=== PATIENT | female | born 1960 | race Caucasian/White ===

== ENCOUNTER 2018-09-16 04:00 | Inpatient (IN) | payer OTHER, MEDICAID, SELFPAY ==
[2018-09-16] VITALS (24 sets, daily range): BP systolic 113–137; BP diastolic 65–104; PULSE 91–121; RESP 16–36; TEMP 36.4–37.3; O2SAT 90–97; BMI 19.4
--- NOTE | 2018-09-16 04:05 | DI.RAD.S_ITS ---
PROCEDURE: XR CHEST 1V INDICATIONS: short of breath TECHNIQUE: One view of the chest was acquired. COMPARISON: [facility], CT, CT ANGIO CHEST PE PROTOCOL, 09/16/2018, 5:22. FINDINGS: Surgical changes and devices: None. Lungs and pleura: No pleural effusions or pneumothorax. Lungs are abnormal with hyperexpansion and interstitial prominence. Mediastinum: Mediastinal contours appear normal. Heart size is normal. Bones and chest wall: No suspicious bony lesions. Overlying soft tissues appear unremarkable. IMPRESSION: Chronic appearing lung disease with hyperexpansion and interstitial prominence. Please also refer to the chest CT report from same day. Dictated by: Lyle Juan M.D. on 09/16/2018 at 8:33 Approved by: Lyle Juan M.D. on 09/16/2018 at 8:34
[2018-09-16] MEDS: SODIUM CHLORIDE 0.9% 1,000 ML 150 ML IV (04:15)
[2018-09-16] MEDS: methylPREDNISolone 125 MG/2 ML VIAL IV (04:15)
[2018-09-16] MEDS: ALBUTEROL 2.5 MG/3 ML NEB (ADULT) INH ×7 (04:16→07:34)
--- NOTE | 2018-09-16 04:31 | ED.SOB ---
HPI - SOB/Dyspnea General Chief Complaint: Shortness of Breath/Dyspnea Stated Complaint: SOB Time Seen by Provider: 09/16/18 04:03 Source: patient and EMS Mode of arrival: EMS Limitations: no limitations History of Present Illness patient is a 58-year-old female presents with increasing shortness of breath. It has been ongoing for the last 3 days. She denies any history of COPD or emphysema but smokes 2 packs a day for a number of years although she is down to half a pack now. She has no fever or chills she has productive cough and feels like she can't get enough air. It is significantly worse with exertion. She was recently on a bus to and from [place] each his way was 5 days. The bus stop frequently she was able to get out and walk around. She returned home about 4 days ago which is when all of this started. he received 2 DuoNeb treatments prior to arrival without much relief. MD Complaint: shortness of breath Consistency/Duration: constant Relieving factors: nothing Exacerbating factors: exertion Known history of: COPD Associated symptoms: cough and sputum production Related Data Allergies Allergy/AdvReac Type Severity Reaction Status Date / Time No Known Drug Allergies Allergy Verified 09/16/18 04:33 Review of Systems Review of Systems ROS Unobtainable: All systems reviewed & are unremarkable except as noted in HPI and below Constitutional Denies chills, Denies fever(s), Denies lethargy and Denies weakness ENT Ears, Nose, Mouth, and Throat: Denies change in voice, Denies neck pain and Denies sore throat Cardiovascular Denies chest pain, Denies irregular heart rhythm, Denies lightheadedness, Denies palpitations, Reports dyspnea, Reports dyspnea on exertion and Denies orthopnea Respiratory Reports as per HPI, Reports change in phlegm color, Reports cough, Reports excessive phlegm production, Reports pain with cough, Reports dyspnea, Reports dyspnea on exertion and Reports wheezing Gastrointestinal Gastrointestinal: Denies abdominal pain, Denies change in bowel habits, Denies diarrhea, Denies nausea and Denies vomiting Musculoskeletal Denies neck pain Integumentary/Breasts Denies pruritus, Denies erythema, Denies rash and Denies wounds Neurologic Denies weakness Endocrine Denies palpitations Allergic/Immunologic Reports wheezing [facility] Social History Smoking Status: Current every day smoker Exam Initial Vital Signs Initial Vital Signs: Vital Signs Pulse Rate 111 H 09/16/18 04:02 Respiratory Rate 30 H 09/16/18 04:02 Blood Pressure 122/68 09/16/18 04:02 Pulse Oximetry 96 09/16/18 04:02 GENERAL: female in moderate respiratory distress HEENT: Head atraumatic,EOMI, pupils reactive, neck is supple no JVD CARDIOVASCULAR: Regular rate and rhythm without murmurs, rubs or gallops. RESPIRATORY: decreased breath sounds with scattered wheezing bilaterally. No rales or rhonchi. Speaking in about 5 word sentences. ABDOMEN: Soft, nontender. Normoactive bowel sounds all 4 quadrants. No guarding or rebound. EXTREMITIES: Normal range of motion, no clubbing or edema. Neurovascularly intact NEUROLOGICAL: Alert and oriented x4.Normal gait and speech SKIN: Warm, dry, no laceration, no petechiae, no rashes or lesions. Course Orders Ordered: ED Orders 09/16/18 04:04 Consult to Respiratory Therapy Evaluate & Treat EKG-12 Lead Stat 09/16/18 04:05 XR chest 1V Stat 09/16/18 04:20 B Type Natriuretic Peptide Stat Blood Culture Stat Complete Blood Count AUTO DIFF Stat Comprehensive Metabolic Panel Stat Lactate (Lactic Acid) Stat Procalcitonin Stat Troponin & CK Cardiac Panel Stat 09/16/18 05:10 Arterial Blood Gas Stat 09/16/18 05:11 Arterial Blood Gas Stat 09/16/18 05:26 CT angio chest PE protocol Stat Sodium Chloride (Normal Saline 0.9%) 1,000 mls @ 150 mls/hr IV CONT KIAH Last Admin: 09/16/18 04:15 Dose: 150 mls/hr Discontinued Medications Albuterol (Ventolin) 2.5 mg INH NOW ONE Stop: 09/16/18 04:04 Last Admin: 09/16/18 04:16 Dose: 2.5 mg Albuterol (Ventolin) 2.5 mg INH NOW ONE Stop: 09/16/18 04:55 Last Admin: 09/16/18 04:56 Dose: 2.5 mg Albuterol (Ventolin) 2.5 mg INH NOW ONE Stop: 09/16/18 04:55 Last Admin: 09/16/18 04:56 Dose: 2.5 mg Albuterol (Ventolin) 2.5 mg INH NOW ONE Stop: 09/16/18 05:25 Last Admin: 09/16/18 05:26 Dose: 2.5 mg Albuterol (Ventolin) 2.5 mg INH NOW ONE Stop: 09/16/18 05:25 Last Admin: 09/16/18 05:26 Dose: 2.5 mg Albuterol (Ventolin) 2.5 mg INH NOW ONE Stop: 09/16/18 05:26 Last Admin: 09/16/18 05:27 Dose: 2.5 mg Albuterol (Ventolin) 2.5 mg INH NOW ONE Stop: 09/16/18 05:27 Ceftriaxone Sodium/Dextrose (Rocephin) 1 gm in 50 mls @ 100 mls/hr IV NOW ONE Stop: 09/16/18 05:32 Last Infusion: 09/16/18 06:09 Dose: 0 mls/hr Admin: 09/16/18 05:10 Dose: 100 mls/hr Azithromycin 500 mg/ Dextrose 250 mls @ 250 mls/hr IV NOW ONE Stop: 09/16/18 05:04 Last Admin: 09/16/18 06:35 Dose: 250 mls/hr Methylprednisolone (Solu-Medrol 125 Mg Vial) 125 mg IV NOW ONE Stop: 09/16/18 04:04 Last Admin: 09/16/18 04:15 Dose: 125 mg Vital Signs - 8 hr 09/16/18 04:02 09/16/18 04:15 09/16/18 04:25 Temperature 99.2 F Pulse Rate 111 H 111 H Respiratory Rate 30 H 30 H Blood Pressure 122/68 Blood Pressure [Left Arm] 122/68 Pulse Oximetry 96 96 96 09/16/18 04:36 09/16/18 05:09 09/16/18 05:30 Temperature Pulse Rate 114 H 115 H 117 H Respiratory Rate 29 H 36 H 31 H Blood Pressure Blood Pressure [Left Arm] 128/67 122/69 133/81 Pulse Oximetry 90 L 92 91 09/16/18 05:58 09/16/18 06:30 Temperature Pulse Rate 121 H 109 H Respiratory Rate 28 H 32 H Blood Pressure Blood Pressure [Left Arm] 137/67 128/69 Pulse Oximetry 93 94 MDM - SOB/Dyspnea Lab Data Attestation: I reviewed the patient's lab results. Result diagrams: 09/16/18 04:20 09/16/18 04:20 Lab Results 0109/16/18 09/16/18 Range/Units 04:20 04:20 04:20 WBC 8.7 (4.5-11.0) X10^3/uL RBC 3.79 L (4.0-5.2) X10^6/uL Hgb 11.7 L (12.0-16.0) g/dL Hct 35.1 L (36-46) % MCV 92.6 (80-100) fL MCH 30.9 (26-34) PG MCHC 33.3 (30-36) % RDW 13.4 (11.6-14.8) % Plt Count 212 (150-400) X10^3/uL Neut % (Auto) 73.8 (50-75) % Lymph % (Auto) 8.4 L (25-40) % [place] % (Auto) 17.2 H (3-14) % Eos % (Auto) 0.2 L (2-4) % Baso % (Auto) 0.4 (0-2) % Neut # (Auto) 6400 (4849-3951) /uL Lymph # (Auto) 700 L (0217-1203) /uL [place] # (Auto) 1500 H (0-900) /uL Eos # (Auto) 0 (0-450) /uL Baso # (Auto) 0 (0-100) /uL ABG pH (7.35-7.45) ABG pCO2 (35-45) mmHg ABG pO2 (80-100) mmHg ABG HCO3 (22-26) mmol/L ABG Total CO2 (21-31) mmol/L ABG O2 Saturation (95-100) % ABG Base Excess (-2-2) mmol/L FiO2 Sodium 142 (137-145) mmol/L Potassium 3.4 (3.4-5.1) mmol/L Chloride 103 (98-107) mmol/L Carbon Dioxide 27 (22-32) mmol/L BUN 13 (7-17) mg/dL Creatinine 0.80 (0.52-1.04) mg/dL Estimated GFR > 60.0 (>60) mL/min BUN/Creatinine Ratio 16.3 (6-22) Glucose 172 H (80-110) mg/dL Lactate (0.7-2.1) mmol/L Calcium 8.8 (8.4-10.2) mg/dL Total Bilirubin 0.6 (0.2-1.3) mg/dL AST 33 (14-36) IU/L ALT 33 (9-52) IU/L Alkaline Phosphatase 101 (38-126) U/L Total Creatine Kinase 54 (30-135) U/L CK-MB (CK-2) TNP CK-MB (CK-2) Rel Index TNP Troponin I 0.018 (0.01-0.034) ng/mL B-Natriuretic Peptide 207 H (<100) Total Protein 7.4 (6.3-8.2) g/dL Albumin 3.8 (3.5-5.0) g/dL Globulin 3.6 (1.7-4.1) g/dL Albumin/Globulin Ratio 1.1 (1.0-2.8) Procalcitonin 0.26 (<0.5) ng/mL 09/16/18 09/16/18 Range/Units 04:20 05:10 WBC (4.5-11.0) X10^3/uL RBC (4.0-5.2) X10^6/uL Hgb (12.0-16.0) g/dL Hct (36-46) % MCV (80-100) fL MCH (26-34) PG MCHC (30-36) % RDW (11.6-14.8) % Plt Count (150-400) X10^3/uL Neut % (Auto) (50-75) % Lymph % (Auto) (25-40) % [place] % (Auto) (3-14) % Eos % (Auto) (2-4) % Baso % (Auto) (0-2) % Neut # (Auto) (1709-5332) /uL Lymph # (Auto) (0617-4651) /uL [place] # (Auto) (0-900) /uL Eos # (Auto) (0-450) /uL Baso # (Auto) (0-100) /uL ABG pH 7.34 L (7.35-7.45) ABG pCO2 47.6 H (35-45) mmHg ABG pO2 57 L (80-100) mmHg ABG HCO3 26 (22-26) mmol/L ABG Total CO2 27 (21-31) mmol/L ABG O2 Saturation 87 L (95-100) % ABG Base Excess 0.0 (-2-2) mmol/L FiO2 0.28 Sodium (137-145) mmol/L Potassium (3.4-5.1) mmol/L Chloride (98-107) mmol/L Carbon Dioxide (22-32) mmol/L BUN (7-17) mg/dL Creatinine (0.52-1.04) mg/dL Estimated GFR (>60) mL/min BUN/Creatinine Ratio (6-22) Glucose (80-110) mg/dL Lactate 1.5 (0.7-2.1) mmol/L Calcium (8.4-10.2) mg/dL Total Bilirubin (0.2-1.3) mg/dL AST (14-36) IU/L ALT (9-52) IU/L Alkaline Phosphatase (38-126) U/L Total Creatine Kinase (30-135) U/L CK-MB (CK-2) CK-MB (CK-2) Rel Index Troponin I (0.01-0.034) ng/mL B-Natriuretic Peptide (<100) Total Protein (6.3-8.2) g/dL Albumin (3.5-5.0) g/dL Globulin (1.7-4.1) g/dL Albumin/Globulin Ratio (1.0-2.8) Procalcitonin (<0.5) ng/mL Imaging Data Chest x-ray: Attestation: I personally reviewed and interpreted this imaging study as follows: My impression: no acute cardiopulmonary process CT PE: Radiologist's impression: shift coordinator report: 1. Suboptimal opacification of pulmonary arteries limits evaluation. No convincing evidence versus pulmonary embolism. 2. Negative for thoracic aortic dissection. Ectasia of the ascending thoracic aorta. 3. Numerous subcentimeter nodular passed with ease bilaterally. Median for still tree in bud type opacities and these are most commonly associated with infection. 4. No focal consolidation or evidence of CHF 5. 12 x 8 mm hyperdense lesion in left liver is indeterminate based on single phase scan. 6. Subcentimeter left renal cyst ECG Data Attestation: I personally reviewed and interpreted this ECG as follows: Prior ECG tracings: not available for review Interpretation: Sinus tachycardia rate [address] changes MDM Narrative Medical decision making narrative: the patient had 3 overall additional treatments while in the ED. She is re-evaluated by myself fall lungs are still tight and wheezing. She still is having some difficulty breathing. Oxygen level decreases to 88% while still wearing oxygen with minimal exertion moving around in the bed. The patient is given 3 additional doses so 6 total in the ED, she is still quite tight but now is requesting a Cigarette. her recent bus ride travel in significant respiratory distress need to rule out PE. CT negative for PE. I spoke with hospitalist who agrees with admission. the patient is breathing better. At this time will hold off on the BiPaP Discharge Plan Departure Patient Disposition: Admitted As Inpatient Clinical Impression: COPD exacerbation Admit Date/Time: 09/16/18 06:34 Admit Provider: Nicolas Ochoa
[2018-09-16 04:38] LABS: Add Manual Diff / Slide Review NO; Basophils Absolute Auto 0 /uL (0-100); Basophils Percent Auto 0.4 % (0-2); Eosinophils Absolute Auto 0 /uL (0-450); Eosinophils Percent Auto 0.2 % (2-4); Hematocrit 35.1 % (36-46); Hemoglobin 11.7 g/dL (12.0-16.0); Lymphocytes Absolute Auto 700 /uL (1100-4500); Lymphocytes Percent Auto 8.4 % (25-40); Mean Corpuscular HGB Conc 33.3 % (30-36); Mean Corpuscular Hemoglobin 30.9 PG (26-34); Mean Corpuscular Volume 92.6 fL (80-100); Monocytes Absolute Auto 1500 /uL (0-900); Monocytes Percent Auto 17.2 % (3-14); Neutrophils Absolute Auto 6400 /uL (1500-7000); Neutrophils Percent Auto 73.8 % (50-75); Platelet Count 212 X10^3/uL (150-400); Red Blood Cell Count 3.79 X10^6/uL (4.0-5.2); Red Cell Distribution Width 13.4 % (11.6-14.8); White Blood Cell Count 8.7 X10^3/uL (4.5-11.0)
[2018-09-16 04:46] LABS: Lactate (Lactic Acid) 1.5 mmol/L (0.7-2.1)
[2018-09-16 04:47] LABS: Alanine Aminotransferase 33 IU/L (9-52); Albumin 3.8 g/dL (3.5-5.0); Albumin Globulin Ratio 1.1 (1.0-2.8); Alkaline Phosphatase 101 U/L (38-126); Aspartate Aminotransferase 33 IU/L (14-36); BUN Creatinine Ratio 16.3 (6-22); Bilirubin Total 0.6 mg/dL (0.2-1.3); Blood Urea Nitrogen 13 mg/dL (7-17); Calcium 8.8 mg/dL (8.4-10.2); Carbon Dioxide 27 mmol/L (22-32); Chloride 103 mmol/L (98-107); Creatine Kinase 54 U/L (30-135); Estimated Glomerular Filt Rate > 60.0 mL/min (>60); Globulin 3.6 g/dL (1.7-4.1); Glucose 172 mg/dL (80-110); HEMOLYSIS < 15 (0-50); Potassium 3.4 mmol/L (3.4-5.1); Sodium 142 mmol/L (137-145); Total Protein 7.4 g/dL (6.3-8.2)
[2018-09-16 04:58] LABS: Troponin I 0.018 ng/mL (0.01-0.034)
[2018-09-16 05:00] LABS: B Type Natriuretic Peptide 207 (<100)
[2018-09-16] MEDS: CEFTRIAXONE 1 GM/50 ML FROZ.PIGGY IV (05:10)
[2018-09-16 05:14] LABS: Procalcitonin 0.26 ng/mL (<0.5)
[2018-09-16 05:22] LABS: HCO3 ABG 26 mmol/L (22-26); Oxygen Saturation ABG 87 % (95-100); PCO2 ABG 47.6 mmHg (35-45); PO2 ABG 57 mmHg (80-100); TCO2 ABG 27 mmol/L (21-31); pH ABG 7.34 (7.35-7.45)
[2018-09-16 05:23] LABS: Fractionated Inspired Oxygen 0.28
--- NOTE | 2018-09-16 05:26 | DI.CT.S_ITS ---
PROCEDURE: CT ANGIO CHEST PE PROTOCOL INDICATIONS: hypoxia TECHNIQUE: After the administration of intravenous contrast, 2 mm thick sections acquired from the pulmonary apices to the posterior costophrenic angles. 3-dimensional maximum intensity projection (MIP) coronal and sagittal reformats were then acquired through the thorax. For radiation dose reduction, the following was used: automated exposure control, adjustment of mA and/or kV according to patient size. COMPARISON: [facility], CR, XR CHEST 1V, 09/16/2018, 4:17. FINDINGS: Image quality: Suboptimal examination due to respiratory motion artifacts. Pulmonary arteries: Pulmonary arteries are normal in size, and demonstrate no intraluminal filling defects to suggest central pulmonary embolism. Lungs and pleura: Bilateral diffuse reticular nodular infiltrates. No pleural effusions or pneumothorax. Central and peripheral airways are patent. Mediastinum: Heart size is normal, without pericardial effusion. Mildly enlarged adjacent lymph nodes are present. A simple, there is a 1.5 cm AP window lymph node. A 1.1 cm precarinal lymph node is noted. Enlarged right hilar lymph node measures 2 cm.. Thoracic aorta is normal in caliber and enhancement. Esophagus is normal in caliber. There is a small hiatal hernia. Bones and chest wall: No suspicious bony lesions. Ribs and thoracic spine appear intact throughout. Thyroid gland is normal. No axillary or supraclavicular adenopathy. Abdomen: There is a 1.0 x 1.4 cm has a nodule in the anterior segment of the right hepatic lobe. Small indeterminate hypodense cortical nodules are noted in kidneys. There is bilateral adrenal thickening. Visualized upper abdominal solid organs appear normal in the early arterial phase of enhancement. IMPRESSION: 1. Suboptimal examination due to respiratory motion artifacts. No definitive central pulmonary embolism. 2. Bilateral diffuse reticular nodular infiltrates. Differential diagnosis include infection such as mycobacteria or fungal pneumonia, inflammatory process such as sarcoidosis and chronic interstitial lung disease. Recommend clinical correlation. 3. Mild mediastinal and right hilar lymphadenopathy. This finding is nonspecific and may be secondary to infectious, inflammatory or neoplastic etiology. Recommend clinical correlation and follow up. 4. A 1.0 x 1.4 cm enhancing nodule in the anterior segment right hepatic lobe. Recommend further imaging evaluation. Initial evaluation may be performed with ultrasound. 5. Indeterminate low density nodule seen in kidneys bilaterally. No significant discrepancy with the night order selector radiology preliminary report. Dictated by: Carlos Manuel Pierson M.D. on 09/16/2018 at 7:37 Approved by: Carlos Manuel Pierson M.D. on 09/16/2018 at 7:50
[2018-09-16] MEDS: AZITHROMYCIN 500 MG in DEXTROSE 5% IN WATER 250 ML IV (06:35)
[2018-09-16] MEDS: POTASSIUM CHLORIDE 20 MEQ/15 ML UDC 40 MEQ PO (09:06)
[2018-09-16] MEDS: ACETAMINOPHEN 325 MG TABLET 650 MG PO (09:07)
--- NOTE | 2018-09-16 10:26 | CM.DANOTE ---
DCP: Case received, EMR reviewed and met with patient. Introduced self and role. DCP template completed with information currently available. Patient is a 58 year old female who admitted early this morning to the care of the hospitalist team. PCP: Dr. Cardenas. Payer: No insurance (will be seeing admissions counselor today) Patient came to hospital with increased shortness of breath. She had apparently been on a recent 5 day bus trip to [place], and ended up returning here, due to difficulty breathing. Patient lives on [address], and has no immediate family. Initially, no provider was listed on her face sheet, but patient stated that she has Dr. Cardenas on [place], as her primary doctor. Called his office, and confirmed with Lola at Dr. Cardenas's office, that she is a patient there. Patient has no insurance. Called admissions counselors, Haily will be up seeing her with an application for insurance. Patient is here under observation, is on oxygen, is difficult for her to talk. She has a history of smoking 2 packs of cigarretts a day, is down to half a pack daily. Her last appt with her primary doctor was in June. She is independent and drives. Patient diagnosis unclear at this time, possible infiltrate/nodule. Unclear if patient may need home oxygen, but she is a smoker, so this can be a challenge. Is currently working with respiratory therapy also. P: DCP to follow closely. Hospitalist has not yet seen patient. Plan is to be determined on progress here in hospital. It is hopeful that patient can be set up with insurance today. Charisma Mustafa RN/Tipple Worker
--- NOTE | 2018-09-16 11:14 | PC.NURSE ---
Pt admitted with exacerbation of COPD from ER. Was flown out from [facility]. Lives by herself, current smoker and not ready to quit at this time. Offered to obtain a patch while in hospital. Pt replied I am not going to stay here that long. Pt refused heparin SQ stating she doesn't think she needs it. Currently on 2L of O2 with O2 at 92%. Making an effort to breathe, lungs very diminished. SOB at rest and worse with exertion. Denies substance use. Oriented to place and self, not date. Given tylenol for pain when taking deep breaths. Pt eating and drinking well. No further complaints.
[2018-09-16] MEDS: ALBUTEROL/IPRATROPIUM 3 ML AMPUL INH ×4 (11:51→22:12)
[2018-09-16] MEDS: NICOTINE 14 PATCH 14 MG TOP (13:12)
[2018-09-16 14:45] LABS: Adenovirus Not Detected (Not Detect); Bordetella pertussis Not Detected (Not Detect); Chlamydophila pneumoniae Not Detected (Not Detect); Coronavirus 229E Not Detected (Not Detect); Coronavirus HKU1 Not Detected (Not Detect); Coronavirus NL 63 Not Detected (Not Detect); Coronavirus OC43 Detected (Not Detect); Human Metapneumovirus Not Detected (Not Detect); Human Rhinovirus/Enterovirus Not Detected (Not Detect); Influenza A Not Detected (Not Detect); Influenza B Not Detected (Not Detect); Mycoplasma pneumoniae Not Detected (Not Detect); Parainfluenza Virus 1 Not Detected (Not Detect); Parainfluenza Virus 2 Not Detected (Not Detect); Parainfluenza Virus 3 Not Detected (Not Detect); Parainfluenza Virus 4 Not Detected (Not Detect); Respiratory Syncytial Virus Not Detected (Not Detect)
--- NOTE | 2018-09-16 17:28 | P.HP_ITS ---
History of Present Illness Date Patient Seen: 09/16/18 Chief complaint: SOB Narrative: The patient is a 58-year-old female with a 15 pack year history of smoking, recurrence ?walking pneumonia, and probable COPD who was admitted to the hospital for increasing shortness of breath. Patient states she returned from [place] via bus following a 5 day plus ride. 3-4 days ago she developed increasing shortness of breath cough with productive sputum and wheezing. She felt her symptoms were similar to her prior episodes of walking pneumonia. Typically she is treated as an outpatient and has not required admission. However she was unable to walk to her local clinic and presented to the emergency department for evaluation. Patient was seen and examined and admitted to the hospital for further evaluation. Patient History Medical History Acute exacerbation of chronic obstructive pulmonary disease (COPD) (Acute) History of pneumonia (Acute) Hypertension (Acute) Family & Social History Social History: household members none Prior Living Arrangements Mobile home Safety & Behavioral: Feels Safe in Current Yes Environment Been Physically Hurt or No Threatened By a Person Suicidal Ideation Description None Suicide Plan Description No Plan Tobacco & Substance use: Tobacco type cigarettes Smoking Status Current every day smoker Smoking packs per day 0.5 alcohol intake current alcohol intake frequency holiday/special occasion Substance Use Type does not use Meds Home Medications Medication Instructions Recorded Confirmed Type atenolol 25 mg PO BID 09/16/18 09/16/18 History Allergies Allergy/AdvReac Type Severity Reaction Status Date / Time No Known Drug Allergies Allergy Verified 09/16/18 04:33 Review of Systems Review of Systems All systems reviewed & are unremarkable except as noted in HPI and below Exam Vital Signs (past 8 hours): - 09/16/18 11:51 09/16/18 12:25 09/16/18 15:12 Temperature 98.1 F Pulse Rate 95 H 99 H 95 H Respiratory Rate 24 24 24 Blood Pressure 117/78 Pulse Oximetry 96 97 97 09/16/18 15:39 09/16/18 16:12 Temperature 98.2 F Pulse Rate 95 H Respiratory Rate 19 Blood Pressure 120/65 Pulse Oximetry 94 97 Oxygen Delivery Method Nasal Cannula Oxygen Flow Rate 2 Narrative Exam Narrative: Pleasant ill-appearing female who appears older than her stated age HEENT: Normocephalic atraumatic, oropharynx is clear, neck is supple Lungs: Diffuse rhonchi with occasional end-expiratory wheezing Cardiac exam: Regular rate and rhythm normal S1-S2 Abdomen: Soft nontender nondistended Extremities: No edema Neurological exam: Cranial nerves 2-12 are intact, sensation grossly intact, reflexes brisk and equal, strength is equal bilaterally. Skin: No obvious lesion Psychiatric: No delusions hallucinations or tics Objective Labs Result Diagrams: 09/16/18 04:20 09/16/18 04:20 Labs: Laboratory Results - last 24 hr 09/16/18 09/16/18 09/16/18 04:20 04:20 04:20 WBC 8.7 RBC 3.79 L Hgb 11.7 L Hct 35.1 L MCV 92.6 MCH 30.9 MCHC 33.3 RDW 13.4 Plt Count 212 Neut % (Auto) 73.8 Lymph % (Auto) 8.4 L [place] % (Auto) 17.2 H Eos % (Auto) 0.2 L Baso % (Auto) 0.4 Neut # (Auto) 6400 Lymph # (Auto) 700 L [place] # (Auto) 1500 H Eos # (Auto) 0 Baso # (Auto) 0 ABG pH ABG pCO2 ABG pO2 ABG HCO3 ABG Total CO2 ABG O2 Saturation ABG Base Excess FiO2 Sodium 142 Potassium 3.4 Chloride 103 Carbon Dioxide 27 BUN 13 Creatinine 0.80 Estimated GFR > 60.0 BUN/Creatinine Ratio 16.3 Glucose 172 H Lactate Calcium 8.8 Total Bilirubin 0.6 AST 33 ALT 33 Alkaline Phosphatase 101 Total Creatine Kinase 54 CK-MB (CK-2) TNP CK-MB (CK-2) Rel Index TNP Troponin I 0.018 B-Natriuretic Peptide 207 H Total Protein 7.4 Albumin 3.8 Globulin 3.6 Albumin/Globulin Ratio 1.1 Procalcitonin 0.26 Chlamy pneumoniae PCR Adenovirus (PCR) B.parapertussis DNA PCR Coronavirus OC43 (PCR) Coronavirus HKU1 (PCR) Coronavirus 229E (PCR) Coronavirus NL63 (PCR) Human Metapneumovir PCR Influenza Type A (PCR) Influenza Type B (PCR) M. pneumoniae (PCR) Parainfluenza 1 (PCR) Parainfluenza 2 (PCR) Parainfluenza 3 (PCR) Parainfluenza 4 (PCR) RSV (PCR) Entero/Rhino (PCR) 09/16/18 09/16/18 09/16/18 04:20 05:10 13:28 WBC RBC Hgb Hct MCV MCH MCHC RDW Plt Count Neut % (Auto) Lymph % (Auto) [place] % (Auto) Eos % (Auto) Baso % (Auto) Neut # (Auto) Lymph # (Auto) [place] # (Auto) Eos # (Auto) Baso # (Auto) ABG pH 7.34 L ABG pCO2 47.6 H ABG pO2 57 L ABG HCO3 26 ABG Total CO2 27 ABG O2 Saturation 87 L ABG Base Excess 0.0 FiO2 0.28 Sodium Potassium Chloride Carbon Dioxide BUN Creatinine Estimated GFR BUN/Creatinine Ratio Glucose Lactate 1.5 Calcium Total Bilirubin AST ALT Alkaline Phosphatase Total Creatine Kinase CK-MB (CK-2) CK-MB (CK-2) Rel Index Troponin I B-Natriuretic Peptide Total Protein Albumin Globulin Albumin/Globulin Ratio Procalcitonin Chlamy pneumoniae PCR Not detected Adenovirus (PCR) Not detected B.parapertussis DNA PCR Not detected Coronavirus OC43 (PCR) Detected H Coronavirus HKU1 (PCR) Not detected Coronavirus 229E (PCR) Not detected Coronavirus NL63 (PCR) Not detected Human Metapneumovir PCR Not detected Influenza Type A (PCR) Not detected Influenza Type B (PCR) Not detected M. pneumoniae (PCR) Not detected Parainfluenza 1 (PCR) Not detected Parainfluenza 2 (PCR) Not detected Parainfluenza 3 (PCR) Not detected Parainfluenza 4 (PCR) Not detected RSV (PCR) Not detected Entero/Rhino (PCR) Not detected Assessment & Plan (1) COPD exacerbation: Problem details: Patient has been placed on steroids and nebulizer and oxygen. Acute, present on admission Current visit: Yes Status: Acute (2) Hypertension: Problem details: Will continue her usual metoprolol. Chronic, present on admission Current visit: Yes Status: Acute (3) Pneumonia: Problem details: CT scan confirms nodular infiltrates suggestive of atypical pneumonia. Will continue current antibiotic Acute, present on admission Current visit: Yes Status: Acute Plan: Assessment/Plan Narrative: Patient will be placed on DVT prophylaxis. Anticipate length of stay of 1-2 days. Quality VTE Deep Vein Thrombosis/Pulmonary Embolism Present on Admission: No
--- NOTE | 2018-09-16 17:47 | PC.NURSE ---
Pt resting in bed sob with talking 1liter o2 sats 95% taking po well . Up to bsc desats to 76% rt here for tx
[2018-09-16] MEDS: methylPREDNISolone 125 MG/2 ML VIAL 80 MG IV (19:55)
[2018-09-16] MEDS: ENOXAPARIN 40 MG/0.4 ML SYRINGE SUBCUT (19:56)
[2018-09-16] MEDS: guaiFENesin ER 600 MG TAB 1200 MG PO (22:38)
[2018-09-17] VITALS (10 sets, daily range): BP systolic 113–129; BP diastolic 70–79; PULSE 89–96; RESP 15–22; TEMP 36.4–36.7; O2SAT 88–99
[2018-09-17] MEDS: ALBUTEROL/IPRATROPIUM 3 ML AMPUL INH ×3 (05:52→15:19)
[2018-09-17] MEDS: guaiFENesin Solution 100 MG/5 ML UDC PO ×2 (06:36)
[2018-09-17] MEDS: AZITHROMYCIN 500 MG in DEXTROSE 5% IN WATER 250 ML IV (06:36)
[2018-09-17] MEDS: methylPREDNISolone 125 MG/2 ML VIAL 80 MG IV ×2 (06:37→17:12)
[2018-09-17] MEDS: guaiFENesin ER 600 MG TAB 1200 MG PO (09:08)
--- NOTE | 2018-09-17 09:41 | PC.NURSE ---
Day Shift Pt is A&O able to make needs known. Reports she wants to go home. New IV started to Left AC to complete ABX. Dr martinez D/C IV fluids is now SL. Pt on RA sats 88% and RT placed back on 1L while sleeping. Pt assisted to BSC sats dropped to 85% 1l, now sitting in chair at bedside sats 95%1l. Call light within reach and chair alarm on.
--- NOTE | 2018-09-17 10:23 | PM.PN.1 ---
Subjective Date Patient Seen: 09/17/18 Interval history: Patient was noted to be hypoxic last evening. It she is now requiring oxygen. She continues to have some shortness of breath and nonproductive cough. Patient is anxious to return home as she needs to work. She has been afebrile otherwise she has no further complaints. The patient is a 58-year-old female with a 15 pack-year history of smoking he was admitted to the hospital yesterday for COPD exacerbation and pneumonia. Cultures thus far have been negative. Exam Vital Signs (past 8 hours): - 09/17/18 05:25 09/17/18 05:52 09/17/18 07:20 Temperature 97.6 F 97.8 F Pulse Rate 89 91 H Respiratory Rate 15 20 Blood Pressure 113/79 117/73 Pulse Oximetry 94 95 97 09/17/18 09:00 09/17/18 09:10 Temperature Pulse Rate Respiratory Rate Blood Pressure Pulse Oximetry 92 88 L Oxygen Delivery Method Room Air Oxygen Flow Rate 1 Narrative Exam Narrative: Ill appearing female somewhat short of breath Lungs: Decreased breath sounds with crackles in the left bases and scattered rhonchi Cardiac exam: Regular rate and rhythm normal S1-S2 Abdomen: Soft nontender nondistended Extremities: No edema Objective Labs Result Diagrams: 09/16/18 04:20 09/16/18 04:20 Labs: Laboratory Results - last 24 hr 09/16/18 13:28 Chlamy pneumoniae PCR Not detected Adenovirus (PCR) Not detected B.parapertussis DNA PCR Not detected Coronavirus OC43 (PCR) Detected H Coronavirus HKU1 (PCR) Not detected Coronavirus 229E (PCR) Not detected Coronavirus NL63 (PCR) Not detected Human Metapneumovir PCR Not detected Influenza Type A (PCR) Not detected Influenza Type B (PCR) Not detected M. pneumoniae (PCR) Not detected Parainfluenza 1 (PCR) Not detected Parainfluenza 2 (PCR) Not detected Parainfluenza 3 (PCR) Not detected Parainfluenza 4 (PCR) Not detected RSV (PCR) Not detected Entero/Rhino (PCR) Not detected Assessment & Plan (1) Acute and chronic respiratory failure with hypoxia: Problem details: Patient is now hypoxic. Will continue oxygen, steroids, nebulizers and antibiotics. Current visit: Yes Status: Acute (2) Pneumonia: Problem details: CT scan confirms nodular infiltrates suggestive of atypical pneumonia. Will continue current antibiotic Acute, present on admission Current visit: Yes Status: Acute (3) Hypertension: Problem details: Will continue her usual metoprolol. Chronic, present on admission Current visit: Yes Status: Acute (4) COPD exacerbation: Problem details: Patient has been placed on steroids and nebulizer and oxygen. Acute, present on admission Current visit: Yes Status: Acute Quality VTE Deep Vein Thrombosis/Pulmonary Embolism Present on Admission: No
--- NOTE | 2018-09-17 11:15 | CM.DPC ---
Addendum entered by BERNADETTE De Santiago 09/17/18 14:20: Per admissions patient will now have [facility]. Original Note: Addendum entered by BERNADETTE De Santiago 09/17/18 14:18: Patient is now IP from time of admission. Original Note: Addendum entered by BERNADETTE De Santiago 09/17/18 14:17: Per admissions/Sandee: patient is eligible for [employer] but the exchange is not letting their pick a plan. Admissions will follow up. Original Note: DCP/cont Chart review: Patient now hypoxic. Patient remains on oxygen, abx and steroids. Admin/Sandee met with patient and is currently in process of trying to sign patient up for [employer]. Plan: continue to follow. Patient remains in OBS and discharge needs are unclear at this time.
--- NOTE | 2018-09-17 20:08 | PC.NURSE ---
Nina shift note: Patient awake and alert, noted to be restless. States needs to go out for a smoke. I discussed the non smoking policy. I offered Nicotine patch,, however she refused. States she will need to leave the hospital. This RN discussed importance of hospitalization to continue treatment and discharge when stable. Notified Provider, Don CUMMINGS. After provider discussion, patient to leave AMA. Refusal of consent to treatment signed by patient and witnessed by this RN. IV access removed. Patient dressed self, and was ambulating independently with steady gait. States will take next community hospital home. Coordinator aware.
--- NOTE | 2018-09-18 03:39 | P.DS_ITS ---
History of Present Illness Date Patient Seen: 09/17/18 Chief complaint: SOB Narrative: Patient left [facility]. Reason: wanted to smoke. Made aware that smoking not allowed in the hospital. Offered nicotine patch, decline. Offered anxiety medication. Discussed risk of further complications, infection, confusion, respiratory decompensation and w/ premature stay. Encouraged to f/u with PCP in am. Discharge Providers Date of admission: 09/16/18 06:34 . Consults: 09/16/18 04:04 Consult to Respiratory Therapy Evaluate & Treat Comment: Physician Instructions: Evaluate and treat 09/16/18 08:24 Consult to Discharge Planning Routine Comment: Discharge provider: EMILIANO Bailon Discharge Date: 09/17/18 Summary Time Spent with Patient Less than 30 minutes Exam Vital Signs (past 8 hours): Oxygen Delivery Method Nasal Cannula Oxygen Flow Rate 1 Narrative Exam Narrative: anxious no focal neurological deficits diminished breath sounds S1S2 Objective Labs Result Diagrams: 09/16/18 04:20 09/16/18 04:20 Discharge Plan Discharge Plan Patient Disposition: Left Against Medical Advice Discharge comment: Left against medical advice Discharge Med Rec/Prescriptions Prescriptions: Discontinued atenolol 25 mg capsule 25 mg PO BID RF: 0 Visit Report/Discharge Packet Visit Report Forms: Stroke Signs & Symptoms Discharge Data Attending Provider: Nicolas Ochoa Admit Date/Time: 09/16/18 06:34 Discharges patient from system. Discharge Date/Time: 09/17/18 19:30 Quality VTE Deep Vein Thrombosis/Pulmonary Embolism Present on Admission: No
== END 2018-09-17 19:30 | disposition left against medical advice (07) | DRG 190 ==
LOC: ED 05:52 → AC 08:10
PROVIDERS: Admitting Provider Nurse Practitioner Gerontology; Emergency Provider Emergency Medicine; Visit Provider Nurse Practitioner Gerontology
DX: J44.0 Chronic obstructive pulmonary disease with (acute) lower respiratory infection (principal); J96.21 Acute and chronic respiratory failure with hypoxia; J18.9 Pneumonia, unspecified organism; J44.1 Chronic obstructive pulmonary disease with (acute) exacerbation; F17.210 Nicotine dependence, cigarettes, uncomplicated; I10 Essential (primary) hypertension
CPT/HCPCS: 36415; 36600; 71045; 71275; 80053; 82550; 82805; 83605; 83880; 84145; 84484; 85025; 87040; 87070; 87205; 87633; 93005; 93010; 94640; 94762; 96365; 96366; 96375; 99284; 99285; 99291; 99292; J1644; J1650; J2930; J7613; Q9967

== ENCOUNTER 2019-10-21 18:20 | Emergency (ER) | payer OTHER, SELFPAY ==
[2018-09-16 08:46] VITALS: BMI 19.4
[2019-10-21 18:22] VITALS: BP 165/88; PULSE 75; RESP 14; TEMP 37; O2SAT 95; BMI 17.3
--- NOTE | 2019-10-21 18:25 | DI.RAD.S_ITS ---
PROCEDURE: XR CHEST 2V INDICATIONS: shortness of breath TECHNIQUE: 2 views of the chest were acquired. COMPARISON: [facility], CR, XR CHEST 1V, 09/16/2018, 4:17. FINDINGS: Surgical changes and devices: None. Lungs and pleura: Persistent background chronic interstitial prominence, hyperaeration, and flattening of the hemidiaphragms compatible with changes of chronic obstructive pulmonary physiology. No focal consolidation. No pneumothorax or pleural effusion. Mediastinum: The cardiomediastinal contours remain stable. Heart size is normal. Bones and chest wall: No suspicious bony abnormalities. Soft tissues appear unremarkable. IMPRESSION: Stable examination of the chest with changes compatible with chronic obstructive pulmonary physiology/COPD. No focal airspace disease. Dictated by: Nicholas Garcia M.D. on 10/21/2019 at 20:31 Approved by: Nicholas Garcia M.D. on 10/21/2019 at 20:32
[2019-10-21 19:01] LABS: Add Manual Diff / Slide Review NO; Basophils Absolute Auto 0 /uL (0-100); Basophils Percent Auto 0.2 % (0-2); Eosinophils Absolute Auto 0 /uL (0-450); Eosinophils Percent Auto 0.1 % (2-4); Hematocrit 38.8 % (36-46); Lymphocytes Absolute Auto 600 /uL (1100-4500); Lymphocytes Percent Auto 9.4 % (25-40); Mean Corpuscular HGB Conc 33.6 % (30-36); Mean Corpuscular Hemoglobin 31.8 PG (26-34); Mean Corpuscular Volume 94.6 fL (80-100); Monocytes Absolute Auto 100 /uL (0-900); Neutrophils Absolute Auto 5800 /uL (1500-7000); Neutrophils Percent Auto 88.3 % (50-75); Platelet Count 282 X10^3/uL (150-400); White Blood Cell Count 6.6 X10^3/uL (4.5-11.0)
[2019-10-21 19:12] LABS: Lactate (Lactic Acid) 2.7 mmol/L (0.7-2.1)
[2019-10-21 19:13] LABS: Alanine Aminotransferase 20 IU/L (<35); Albumin Globulin Ratio 1.1 (1.0-2.8); Alkaline Phosphatase 84 U/L (38-126); Aspartate Aminotransferase 33 IU/L (14-36); BUN Creatinine Ratio 24.3 (6-22); Bilirubin Total 0.4 mg/dL (0.2-1.3); Blood Urea Nitrogen 17 mg/dL (7-17); Calcium 9.1 mg/dL (8.4-10.2); Carbon Dioxide 29 mmol/L (22-32); Chloride 104 mmol/L (98-107); Estimated Glomerular Filt Rate > 60.0 mL/min (>60); Globulin 3.8 g/dL (1.7-4.1); Glucose 351 mg/dL (80-110); HEMOLYSIS < 15 (0-50); Potassium 4.3 mmol/L (3.4-5.1); Sodium 143 mmol/L (137-145); Total Protein 7.8 g/dL (6.3-8.2)
[2019-10-21] MEDS: SODIUM CHLORIDE 0.9% 1,000 ML 1000 ML IV (19:47)
[2019-10-21] MEDS: ALBUTEROL/IPRATROPIUM 3 ML AMPUL INH (19:47)
[2019-10-21 20:26] LABS: Procalcitonin < 0.05 ng/mL (<0.5)
[2019-10-21 20:40] LABS: Adenovirus Not Detected (Not Detect); Bordetella pertussis Not Detected (Not Detect); Chlamydophila pneumoniae Not Detected (Not Detect); Coronavirus 229E Not Detected (Not Detect); Coronavirus HKU1 Not Detected (Not Detect); Coronavirus NL 63 Not Detected (Not Detect); Coronavirus OC43 Not Detected (Not Detect); Human Metapneumovirus Not Detected (Not Detect); Human Rhinovirus/Enterovirus Not Detected (Not Detect); Influenza A Not Detected (Not Detect); Influenza B Not Detected (Not Detect); Mycoplasma pneumoniae Not Detected (Not Detect); Parainfluenza Virus 1 Not Detected (Not Detect); Parainfluenza Virus 2 Not Detected (Not Detect); Parainfluenza Virus 3 Not Detected (Not Detect); Parainfluenza Virus 4 Not Detected (Not Detect); Respiratory Syncytial Virus Not Detected (Not Detect)
[2019-10-21 20:55] LABS: Reflexed Lactate in 2 Hours Y
[2019-10-21] MEDS: ALBUTEROL HFA PREPACK 1 BOX MISC (21:13)
[2019-10-21] MEDS: DOXYCYCLINE HYCLATE 100 MG TABLET PO (21:24)
[2019-10-21 21:25] LABS: Lactate 2HR (Lactic Acid Rflx) 2.1 mmol/L (0.7-2.1)
--- NOTE | 2019-10-21 21:36 | ED_ITS ---
HPI - SOB/Dyspnea <BRIANNE ClarkBC - Last Filed: 10/21/19 21:50> General Chief Complaint: Shortness of Breath/Dyspnea Stated Complaint: SOB FEVER Time Seen by Provider: 10/21/19 19:12 Source: patient Mode of arrival: Ambulatory Limitations: no limitations History of Present Illness HPI Narrative: The patient is a 59-year-old female current smoker with history of COPD who presents with a chief complaint of shortness of breath and wheezing, states she was told she has pneumonia at an outside facility. She states that 4 days ago she started wheezing, increased shortness of breath with exertion. She does have history of COPD and does not use any inhalers at this point time. She denies any fevers nausea vomiting or diarrhea. She states she has a productive cough with increasing sputum. She denies any chest pain. Related Data Home Medications Medication Instructions Recorded Confirmed atenolol 25 mg PO BID 10/21/19 10/21/19 hydrocodone-acetaminophen [[place]] 1 tab PO PRN PRN 10/21/19 10/21/19 Previous Rx's Medication Instructions Recorded doxycycline hyclate 100 mg PO BID #20 cap 10/21/19 ipratropium-albuterol 3 ml INHALATION Q3-4H PRN #15 ml 10/21/19 nebulizer accessories #1 each 10/21/19 nebulizer and compressor #1 each 10/21/19 prednisone 50 mg PO DAILY #5 tab 10/21/19 Allergies Allergy/AdvReac Type Severity Reaction Status Date / Time lisinopril Allergy Verified 10/21/19 18:22 paroxetine Allergy Verified 10/21/19 18:22 Review of Systems <FABIÁN Clark - Last Filed: 10/21/19 21:50> Review of Systems Narrative: GENERAL: Denies chills, fatigue, malaise, fever, sweats. HEENT: Denies sinus pain, ear pain, sore throat, difficulty swallowing, dizziness. RESPIRATORY: See HPI CARDIOVASCULAR: Denies chest pain, palpitations, orthopnea, edema, GASTROINTESTINAL: Denies nausea, vomiting, abdominal pain, diarrhea, constipation, melena. : Denies dysuria, frequency, incontinence, hematuria, urinary retention. MUSCULOSKELETAL: denies weakness, joint pain, or bony pain SKIN: Denies rash, skin lesions, or other NEUROLOGIC: Denies weakness, headache, numbness, change in speech, confusion, seizures, incoordination. PSYCHIATRIC: No concerning psychosocial issues. 12 point review of systems is negative except for those stated above Patient History <FABIÁN Clark - Last Filed: 10/21/19 21:50> Medical History Acute exacerbation of chronic obstructive pulmonary disease (COPD) (Acute) History of pneumonia (Acute) Hypertension (Acute) Family History Father Cancer Mother Aneurysm Social History household members: none Smoking Status: Current every day smoker alcohol intake: current Smoking Status: Current every day smoker alcohol intake frequency: holidays/special occasions only Substance Use Type: does not use Exam <FABIÁN Clark - Last Filed: 10/21/19 21:50> Narrative Exam Narrative: GENERAL: Thin female, appears chronically ill and older than stated age HEAD: Atraumatic. Normocephalic. No temporal or scalp tenderness. EYES: Pupils equal round and reactive. Extraocular motions intact. No scleral icterus. No injection or drainage. ENT: Nose without bleeding, purulent drainage or septal hematoma. Throat without erythema, tonsillar hypertrophy or exudate. Uvula midline. Airway patent. NECK: Trachea midline. No JVD or lymphadenopathy. Supple, nontender, no meningeal signs. CARDIOVASCULAR: Regular rate and rhythm RESPIRATORY: Expiratory wheezes bilaterally to auscultation. Breath sounds equal bilaterally. No crackles rales or rhonchi GASTROINTESTINAL: Abdomen soft, non-tender, nondistended. No hepato- splenomegaly, or palpable masses. No guarding. Active bowel sounds all 4 quadrants EXTREMITIES: No clubbing, cyanosis, or edema. No joint tenderness, effusion, or edema noted. BACK: Nontender without deformity or crepitance. No flank tenderness. NEURO: AOx3. SKIN: No rash or erythema. Initial Vital Signs Initial Vital Signs: Vital Signs Temperature 98.6 F 10/21/19 18:22 Pulse Rate 75 10/21/19 18:22 Respiratory Rate 14 10/21/19 18:22 Blood Pressure 165/88 H 10/21/19 18:22 Pulse Oximetry 95 10/21/19 18:22 <Devang Allen DO - Last Filed: 10/21/19 23:47> Initial Vital Signs Initial Vital Signs: Vital Signs Temperature 98.6 F 10/21/19 18:22 Pulse Rate 75 10/21/19 18:22 Respiratory Rate 14 10/21/19 18:22 Blood Pressure 165/88 H 10/21/19 18:22 Pulse Oximetry 95 10/21/19 18:22 Course <LC Clark-BC - Last Filed: 10/21/19 21:50> Orders Ordered: ED Orders 10/21/19 18:25 XR chest 2V Stat EKG-12 Lead Stat Measure peak expiratory flow ONCE RT Consult Eval and Treat Now 10/21/19 18:45 Complete Blood Count AUTO DIFF Stat Comprehensive Metabolic Panel Stat Lactate (Lactic Acid) Stat Procalcitonin Stat 10/21/19 19:20 Respiratory Panel (Film Array) Stat Discontinued Medications Albuterol (Ventolin Hfa Prepack) 1 box MISC SEEINSTR ONE Stop: 10/21/19 20:47 Last Admin: 10/21/19 21:13 Dose: 1 box Documented by: PRAKASH Albuterol/Ipratropium (Duoneb) 3 ml INH NOW ONE Stop: 10/21/19 19:21 Last Admin: 10/21/19 19:47 Dose: 3 ml Documented by: CONSUELO Doxycycline Hyclate (Vibramycin) 100 mg PO NOW ONE Stop: 10/21/19 20:47 Last Admin: 10/21/19 21:24 Dose: 100 mg Documented by: CONSUELO Sodium Chloride (Normal Saline 0.9%) 1,000 mls @ 1,000 mls/hr IV BOLUS ONE Stop: 10/21/19 20:19 Last Infusion: 10/21/19 21:23 Dose: 0 mls/hr Documented by: Admin: 10/21/19 19:47 Dose: 1,000 mls/hr Documented by: CONSUELO Vital Signs Vital signs: Vital Signs - 8 hr 10/21/19 18:22 10/21/19 22:03 Temperature 98.6 F Pulse Rate 75 76 Respiratory Rate 14 19 Blood Pressure 165/88 H 161/83 H Pulse Oximetry 95 91 <Devang Allen DO - Last Filed: 10/21/19 23:47> Orders Ordered: ED Orders 10/21/19 18:25 XR chest 2V Stat EKG-12 Lead Stat Measure peak expiratory flow ONCE RT Consult Eval and Treat Now 10/21/19 18:45 Complete Blood Count AUTO DIFF Stat Comprehensive Metabolic Panel Stat Lactate (Lactic Acid) Stat Procalcitonin Stat 10/21/19 19:20 Respiratory Panel (Film Array) Stat Discontinued Medications Albuterol (Ventolin Hfa Prepack) 1 box MISC SEEINSTR ONE Stop: 10/21/19 20:47 Last Admin: 10/21/19 21:13 Dose: 1 box Documented by: PRAKASH Albuterol/Ipratropium (Duoneb) 3 ml INH NOW ONE Stop: 10/21/19 19:21 Last Admin: 10/21/19 19:47 Dose: 3 ml Documented by: CONSUELO Doxycycline Hyclate (Vibramycin) 100 mg PO NOW ONE Stop: 10/21/19 20:47 Last Admin: 10/21/19 21:24 Dose: 100 mg Documented by: CONSUELO Sodium Chloride (Normal Saline 0.9%) 1,000 mls @ 1,000 mls/hr IV BOLUS ONE Stop: 10/21/19 20:19 Last Infusion: 10/21/19 21:23 Dose: 0 mls/hr Documented by: Admin: 10/21/19 19:47 Dose: 1,000 mls/hr Documented by: CONSUELO Vital Signs Vital signs: Vital Signs - 8 hr 10/21/19 18:22 10/21/19 22:03 Temperature 98.6 F Pulse Rate 75 76 Respiratory Rate 14 19 Blood Pressure 165/88 H 161/83 H Pulse Oximetry 95 91 MDM - SOB/Dyspnea <FABIÁN Clark - Last Filed: 10/21/19 21:50> Lab Data Result diagrams: 10/21/19 18:45 10/21/19 18:45 Labs: Lab Results 10/21/19 10/21/19 10/21/19 Range/Units 18:45 18:45 18:45 WBC 6.6 (4.5-11.0) X10^3/uL RBC 4.10 (4.0-5.2) X10^6/uL Hgb 13.0 (12.0-16.0) g/dL Hct 38.8 (36-46) % MCV 94.6 (80-100) fL MCH 31.8 (26-34) PG MCHC 33.6 (30-36) % RDW 13.0 (11.6-14.8) % Plt Count 282 (150-400) X10^3/uL Neut % (Auto) 88.3 H (50-75) % Lymph % (Auto) 9.4 L (25-40) % [place] % (Auto) 2.0 L (3-14) % Eos % (Auto) 0.1 L (2-4) % Baso % (Auto) 0.2 (0-2) % Neut # (Auto) 5800 (0173-1670) /uL Lymph # (Auto) 600 L (1241-5939) /uL [place] # (Auto) 100 (0-900) /uL Eos # (Auto) 0 (0-450) /uL Baso # (Auto) 0 (0-100) /uL Sodium 143 (137-145) mmol/L Potassium 4.3 (3.4-5.1) mmol/L Chloride 104 (98-107) mmol/L Carbon Dioxide 29 (22-32) mmol/L BUN 17 (7-17) mg/dL Creatinine 0.70 (0.52-1.04) mg/dL Estimated GFR > 60.0 (>60) mL/min BUN/Creatinine Ratio 24.3 H (6-22) Glucose 351 H (80-110) mg/dL Lactate 2.7 H (0.7-2.1) mmol/L Calcium 9.1 (8.4-10.2) mg/dL Total Bilirubin 0.4 (0.2-1.3) mg/dL AST 33 (14-36) IU/L ALT 20 (<35) IU/L Alkaline Phosphatase 84 (38-126) U/L Total Protein 7.8 (6.3-8.2) g/dL Albumin 4.0 (3.5-5.0) g/dL Globulin 3.8 (1.7-4.1) g/dL Albumin/Globulin Ratio 1.1 (1.0-2.8) Procalcitonin (<0.5) ng/mL Chlamy pneumoniae PCR (Not Detect) Adenovirus (PCR) (Not Detect) B.parapertussis DNA PCR (Not Detect) Coronavirus OC43 (PCR) (Not Detect) Coronavirus HKU1 (PCR) (Not Detect) Coronavirus 229E (PCR) (Not Detect) Coronavirus NL63 (PCR) (Not Detect) Human Metapneumovir PCR (Not Detect) Influenza Type A (PCR) (Not Detect) Influenza Type B (PCR) (Not Detect) M. pneumoniae (PCR) (Not Detect) Parainfluenza 1 (PCR) (Not Detect) Parainfluenza 2 (PCR) (Not Detect) Parainfluenza 3 (PCR) (Not Detect) Parainfluenza 4 (PCR) (Not Detect) RSV (PCR) (Not Detect) Entero/Rhino (PCR) (Not Detect) 10/21/19 10/21/19 10/21/19 Range/Units 18:45 19:20 21:02 WBC (4.5-11.0) X10^3/uL RBC (4.0-5.2) X10^6/uL Hgb (12.0-16.0) g/dL Hct (36-46) % MCV (80-100) fL MCH (26-34) PG MCHC (30-36) % RDW (11.6-14.8) % Plt Count (150-400) X10^3/uL Neut % (Auto) (50-75) % Lymph % (Auto) (25-40) % [place] % (Auto) (3-14) % Eos % (Auto) (2-4) % Baso % (Auto) (0-2) % Neut # (Auto) (2231-1146) /uL Lymph # (Auto) (2963-4413) /uL [place] # (Auto) (0-900) /uL Eos # (Auto) (0-450) /uL Baso # (Auto) (0-100) /uL Sodium (137-145) mmol/L Potassium (3.4-5.1) mmol/L Chloride (98-107) mmol/L Carbon Dioxide (22-32) mmol/L BUN (7-17) mg/dL Creatinine (0.52-1.04) mg/dL Estimated GFR (>60) mL/min BUN/Creatinine Ratio (6-22) Glucose (80-110) mg/dL Lactate 2.1 (0.7-2.1) mmol/L Calcium (8.4-10.2) mg/dL Total Bilirubin (0.2-1.3) mg/dL AST (14-36) IU/L ALT (<35) IU/L Alkaline Phosphatase (38-126) U/L Total Protein (6.3-8.2) g/dL Albumin (3.5-5.0) g/dL Globulin (1.7-4.1) g/dL Albumin/Globulin Ratio (1.0-2.8) Procalcitonin < 0.05 (<0.5) ng/mL Chlamy pneumoniae PCR Not detected (Not Detect) Adenovirus (PCR) Not detected (Not Detect) B.parapertussis DNA PCR Not detected (Not Detect) Coronavirus OC43 (PCR) Not detected (Not Detect) Coronavirus HKU1 (PCR) Not detected (Not Detect) Coronavirus 229E (PCR) Not detected (Not Detect) Coronavirus NL63 (PCR) Not detected (Not Detect) Human Metapneumovir PCR Not detected (Not Detect) Influenza Type A (PCR) Not detected (Not Detect) Influenza Type B (PCR) Not detected (Not Detect) M. pneumoniae (PCR) Not detected (Not Detect) Parainfluenza 1 (PCR) Not detected (Not Detect) Parainfluenza 2 (PCR) Not detected (Not Detect) Parainfluenza 3 (PCR) Not detected (Not Detect) Parainfluenza 4 (PCR) Not detected (Not Detect) RSV (PCR) Not detected (Not Detect) Entero/Rhino (PCR) Not detected (Not Detect) Imaging Data Chest x-ray: Radiologist's Impression: [address] [address] XRay Report Signed Patient: Irasema Moya [facility]#: [id number] : 9Acct:[id number] Age/Sex: 59 / FDate of Service: 10/21/19 Loc: ED Accession Number: [id number] Procedure: XR chest 2V Ordering Provider: Lanker,Devang D.O. PROCEDURE: XR CHEST 2V INDICATIONS: shortness of breath TECHNIQUE: 2 views of the chest were acquired. COMPARISON: [facility], CR, XR CHEST 1V, 09/16/2018, 4:17. FINDINGS: Surgical changes and devices: None. Lungs and pleura: Persistent background chronic interstitial prominence, hyperaeration, and flattening of the hemidiaphragms compatible with changes of chronic obstructive pulmonary physiology. No focal consolidation. No pneumothorax or pleural effusion. Mediastinum: The cardiomediastinal contours remain stable. Heart size is normal. Bones and chest wall: No suspicious bony abnormalities. Soft tissues appear unremarkable. IMPRESSION: Stable examination of the chest with changes compatible with chronic obstructive pulmonary physiology/COPD. No focal airspace disease. Dictated by: Nicholas Garcia M.D. on 10/21/2019 at 20:31 Approved by: Nicholas Garcia M.D. on 10/21/2019 at 20:32 MDM Narrative Medical decision making narrative: The patient is a 59-year-old female who presents with a chief complaint of shortness of breath and diagnosis of pneumonia from an outside facility. She has not started on antibiotics, but received 2 DuoNebs and an injection of steroids. Chest x-ray shows no pneumonia, rather suspicious for COPD. Given that she has increased sputum production and wheezing, I initiated treatment of his COPD flare. Patient was given more nebulizers in the emergency department as well as inhaler and spacer teaching. I will start her on doxycycline. Patient remained largely SpO2 above 88% in the emergency department. She is nontoxic EN eating and drinking in the emergency department. I did speak with Lyle CUMMINGS, admitting nurse practitioner who states that this is an appropriate oxygen level for patient was COPD and she does not warrant admission for this at this point time. Additionsarah lly she has and negative procalcitonin, no leukocytosis, and decreasing lactate. The patient was also 91% to 95% after ambulating on room air. I discussed at length the etiology of COPD exacerbation, sent prescriptions of steroids burst, nebulizer, doxycycline. Discussed at length the importance of follow-up with up with primary care provider in the next few days as well as coming back to the e mergency department for any acute concerns. Patient has no questions or concerns upon discharge and states understanding of return precautions as well as follow-up care. I did discuss with the patient her blood sugars high, encouraged primary care provider follow-up. She states she is aware of the situation and already has follow-up planned. <Devang Allen, DO - Last Filed: 10/21/19 23:47> Lab Data Labs: Lab Results 10/21/19 10/21/19 10/21/19 Range/Units 18:45 18:45 18:45 WBC 6.6 (4.5-11.0) X10^3/uL RBC 4.10 (4.0-5.2) X10^6/uL Hgb 13.0 (12.0-16.0) g/dL Hct 38.8 (36-46) % MCV 94.6 (80-100) fL MCH 31.8 (26-34) PG MCHC 33.6 (30-36) % RDW 13.0 (11.6-14.8) % Plt Count 282 (150-400) X10^3/uL Neut % (Auto) 88.3 H (50-75) % Lymph % (Auto) 9.4 L (25-40) % [place] % (Auto) 2.0 L (3-14) % Eos % (Auto) 0.1 L (2-4) % Baso % (Auto) 0.2 (0-2) % Neut # (Auto) 5800 (2264-8393) /uL Lymph # (Auto) 600 L (9703-8611) /uL [place] # (Auto) 100 (0-900) /uL Eos # (Auto) 0 (0-450) /uL Baso # (Auto) 0 (0-100) /uL Sodium 143 (137-145) mmol/L Potassium 4.3 (3.4-5.1) mmol/L Chloride 104 (98-107) mmol/L Carbon Dioxide 29 (22-32) mmol/L BUN 17 (7-17) mg/dL Creatinine 0.70 (0.52-1.04) mg/dL Estimated GFR > 60.0 (>60) mL/min BUN/Creatinine Ratio 24.3 H (6-22) Glucose 351 H (80-110) mg/dL Lactate 2.7 H (0.7-2.1) mmol/L Calcium 9.1 (8.4-10.2) mg/dL Total Bilirubin 0.4 (0.2-1.3) mg/dL AST 33 (14-36) IU/L ALT 20 (<35) IU/L Alkaline Phosphatase 84 (38-126) U/L Total Protein 7.8 (6.3-8.2) g/dL Albumin 4.0 (3.5-5.0) g/dL Globulin 3.8 (1.7-4.1) g/dL Albumin/Globulin Ratio 1.1 (1.0-2.8) Procalcitonin (<0.5) ng/mL Chlamy pneumoniae PCR (Not Detect) Adenovirus (PCR) (Not Detect) B.parapertussis DNA PCR (Not Detect) Coronavirus OC43 (PCR) (Not Detect) Coronavirus HKU1 (PCR) (Not Detect) Coronavirus 229E (PCR) (Not Detect) Coronavirus NL63 (PCR) (Not Detect) Human Metapneumovir PCR (Not Detect) Influenza Type A (PCR) (Not Detect) Influenza Type B (PCR) (Not Detect) M. pneumoniae (PCR) (Not Detect) Parainfluenza 1 (PCR) (Not Detect) Parainfluenza 2 (PCR) (Not Detect) Parainfluenza 3 (PCR) (Not Detect) Parainfluenza 4 (PCR) (Not Detect) RSV (PCR) (Not Detect) Entero/Rhino (PCR) (Not Detect) 10/21/19 10/21/19 10/21/19 Range/Units 18:45 19:20 21:02 WBC (4.5-11.0) X10^3/uL RBC (4.0-5.2) X10^6/uL Hgb (12.0-16.0) g/dL Hct (36-46) % MCV (80-100) fL MCH (26-34) PG MCHC (30-36) % RDW (11.6-14.8) % Plt Count (150-400) X10^3/uL Neut % (Auto) (50-75) % Lymph % (Auto) (25-40) % [place] % (Auto) (3-14) % Eos % (Auto) (2-4) % Baso % (Auto) (0-2) % Neut # (Auto) (2858-6357) /uL Lymph # (Auto) (0497-7764) /uL [place] # (Auto) (0-900) /uL Eos # (Auto) (0-450) /uL Baso # (Auto) (0-100) /uL Sodium (137-145) mmol/L Potassium (3.4-5.1) mmol/L Chloride (98-107) mmol/L Carbon Dioxide (22-32) mmol/L BUN (7-17) mg/dL Creatinine (0.52-1.04) mg/dL Estimated GFR (>60) mL/min BUN/Creatinine Ratio (6-22) Glucose (80-110) mg/dL Lactate 2.1 (0.7-2.1) mmol/L Calcium (8.4-10.2) mg/dL Total Bilirubin (0.2-1.3) mg/dL AST (14-36) IU/L ALT (<35) IU/L Alkaline Phosphatase (38-126) U/L Total Protein (6.3-8.2) g/dL Albumin (3.5-5.0) g/dL Globulin (1.7-4.1) g/dL Albumin/Globulin Ratio (1.0-2.8) Procalcitonin < 0.05 (<0.5) ng/mL Chlamy pneumoniae PCR Not detected (Not Detect) Adenovirus (PCR) Not detected (Not Detect) B.parapertussis DNA PCR Not detected (Not Detect) Coronavirus OC43 (PCR) Not detected (Not Detect) Coronavirus HKU1 (PCR) Not detected (Not Detect) Coronavirus 229E (PCR) Not detected (Not Detect) Coronavirus NL63 (PCR) Not detected (Not Detect) Human Metapneumovir PCR Not detected (Not Detect) Influenza Type A (PCR) Not detected (Not Detect) Influenza Type B (PCR) Not detected (Not Detect) M. pneumoniae (PCR) Not detected (Not Detect) Parainfluenza 1 (PCR) Not detected (Not Detect) Parainfluenza 2 (PCR) Not detected (Not Detect) Parainfluenza 3 (PCR) Not detected (Not Detect) Parainfluenza 4 (PCR) Not detected (Not Detect) RSV (PCR) Not detected (Not Detect) Entero/Rhino (PCR) Not detected (Not Detect) Discharge Plan Departure Patient Disposition: Home Clinical Impression: COPD exacerbation Discharge Date/Time: 10/21/19 22:06 Instructions: Chronic Obstructive Pulmonary Disease (Alternative Therapy), DI for Chronic Obstructive Pulmonary Disease, Be a Partner in Your COPD Care, COPD: When to Call for Help Activity Restrictions/Additional Instructions: Today your lab work, x-ray and vital signs are reassuring I sent a prescription for steroids, antibiotics as well as a nebulizer to [facility] Please take probiotics or yogurt with prescription antibiotics. Please start the steroids tomorrow as he already received a steroid injection today Please follow-up with primary care provider in the next few days Please come back to emergency department for any acute concerns Prescriptions: New prednisone 50 mg tablet 50 mg PO DAILY Qty: 5 RF: 0 doxycycline hyclate 100 mg capsule 100 mg PO BID Qty: 20 RF: 0 ipratropium-albuterol 0.5 mg-3 mg(2.5 mg base)/3 mL solution for nebulization 3 ml INHALATION Q3-4H PRN (Reason: shortness of breath or wheezing) Qty: 15 RF: 0 (DME) nebulizer and compressor Device See Rx Instructions .ROUTE .MEDSUPPLY Qty: 1 RF: 0 (DME) nebulizer accessories Kit See Rx Instructions .ROUTE .MEDSUPPLY Qty: 1 RF: 0 No Action hydrocodone-acetaminophen [[place]] 5-325 mg Tablet 1 tab PO PRN PRN (Reason: pain) RF: 0 atenolol 25 mg Tablet 25 mg PO BID RF: 0 Referrals: Gilson Cardenas MD [Non-Staff] - <Devang Allen, DO - Last Filed: 10/21/19 23:47> Sign Out Provider Sign Out Attestation: Dr Allen Co-Sign Statement: I was available for consultation during this patient's emergency department visit. This chart is signed by myself for administrative purposes only. I did not have direct contact with this patient during this visit. They were seen independently by the APC.
[2019-10-21 22:03] VITALS: BP 161/83; PULSE 76; RESP 19; O2SAT 91
== END 2019-10-21 22:06 | disposition home or self-care (01) ==
PROVIDERS: Emergency Medicine; Emergency Provider Nurse Practitioner Family
DX: J44.1 Chronic obstructive pulmonary disease with (acute) exacerbation (principal)
CPT/HCPCS: 36415; 71046; 80053; 83605; 84145; 85025; 87633; 93005; 94640; 96360; 96361; 99285

== ENCOUNTER 2019-12-14 23:50 | Emergency (ER) | payer OTHER, MEDICAID, SELFPAY ==
[2018-09-16 08:46] VITALS: BMI 19.4
[2019-12-14 23:55] VITALS: BP 159/70; PULSE 67; RESP 18; TEMP 36.6; O2SAT 96; BMI 18.3
--- NOTE | 2019-12-15 00:06 | ED_ITS ---
HPI - SOB/Dyspnea General Chief Complaint: Shortness of Breath/Dyspnea Stated Complaint: thinks she has pneumonia Time Seen by Provider: 12/14/19 23:52 Source: patient Mode of arrival: Ambulatory Limitations: no limitations History of Present Illness HPI Narrative: 59-year-old female daily smoker with history of COPD presents by herself with a chief complaint of 4 days of increasing cough occasionally productive of sputum. She has some runny nose and sneezing. She denies any sore throat or chest pain. She has no nausea, vomiting or diarrhea. She denies dysuria, frequency or urgency. She denies recent travel and does not think she has been exposed to anyone with COVID-19 her last hospitalization was over 1 year ago. She was seen here about a month ago for a COPD exacerbation. She does have bronchodilators and spacer at home, but hasn't really been using them. MD Complaint: cough Onset (ago): day(s) Severity: mild Consistency/Duration: constant Relieving factors: nothing Exacerbating factors: nothing Known history of: COPD Associated symptoms: denies other symptoms Treatment prior to arrival: none Related Data Home oxygen amount: none Home Medications Medication Instructions Recorded Confirmed atenolol 25 mg PO BID 10/21/19 10/21/19 hydrocodone-acetaminophen [[place]] 1 tab PO PRN PRN 10/21/19 10/21/19 Previous Rx's Medication Instructions Recorded doxycycline hyclate 100 mg PO BID #20 cap 10/21/19 ipratropium-albuterol 3 ml INHALATION Q3-4H PRN #15 ml 10/21/19 nebulizer accessories #1 each 10/21/19 nebulizer and compressor #1 each 10/21/19 prednisone 50 mg PO DAILY #5 tab 10/21/19 albuterol sulfate 2 puff INHALATION Q4H PRN #1 each 12/15/19 benzonatate [Tessalon Perles] 100 mg PO TID PRN #14 cap 12/15/19 doxycycline monohydrate 100 mg PO BID 10 Days #20 cap 12/15/19 Allergies Allergy/AdvReac Type Severity Reaction Status Date / Time lisinopril Allergy Verified 10/21/19 18:22 paroxetine Allergy Verified 10/21/19 18:22 Review of Systems Constitutional Constitutional: Denies chills, Denies fatigue, Denies fever(s), Denies frequent falls, Denies lethargy and Denies weakness Eyes Eyes: Denies change in vision, Denies eye discharge, Denies irritation and Denies loss of vision ENT Ears, Nose, Mouth, and Throat: Denies change in voice, Denies dizziness, Reports nasal congestion, Denies neck pain, Denies sore throat and Denies throat swelling Cardiovascular Cardiovascular: Denies chest pain, Denies irregular heart rhythm, Denies lightheadedness, Denies palpitations, Denies dyspnea, Denies dyspnea on exertion and Denies orthopnea Respiratory Respiratory: Reports cough, Denies dyspnea, Denies dyspnea on exertion and Denies wheezing Gastrointestinal Gastrointestinal: Denies abdominal pain, Denies change in bowel habits, Denies d iarrhea, Denies nausea and Denies vomiting Genitourinary Genitourinary: Denies hematuria, Denies flank pain, Denies urinary incontinence and Denies urinary urgency Musculoskeletal Musculoskeletal: Denies back pain, Denies muscle weakness, Denies neck pain, Denies numbness and Denies tingling Integumentary/Breasts Skin/Breast: Denies pruritus, Denies erythema, Denies rash and Denies wounds Neurologic Neurologic: Denies behavioral changes, Denies confusion, Denies dizziness, Denies frequent falls, Denies loss of vision, Denies numbness, Denies tingling and Denies weakness Psychiatric Psychiatric: Denies anxiety, Denies behavioral changes, Denies confusion, Denies depression, Denies homicidal ideation and Denies suicidal ideation Endocrine Endocrine: Denies fatigue, Denies flushing and Denies palpitations Hematologic/Lymphatic Hematologic/Lymphatic: Denies easy bruising Allergic/Immunologic Allergic/Immunologic: Denies urticaria, Denies throat swelling and Denies wheezing Patient History Medical History Acute exacerbation of chronic obstructive pulmonary disease (COPD) (Acute) History of pneumonia (Acute) Hypertension (Acute) Family History Father Cancer Mother Aneurysm Social History household members: none Smoking Status: Current every day smoker alcohol intake: current Smoking Status: Current every day smoker alcohol intake frequency: holidays/special occasions only Substance Use Type: does not use Exam Narrative Exam Narrative: GENERAL: [59] year old patient appears stated age. Well-nourishe d, well-developed patient, in mild distress. HEAD: Atraumatic. Normocephalic. EYES: Pupils equal round and reactive. Extraocular motions intact. No scleral icterus. No injection or drainage. ENT: Nose without bleeding, purulent drainage. Clear postnasal drip Throat without erythema, tonsillar hypertrophy or exudate. Airway patent. NECK: Trachea midline. Non tender CARDIOVASCULAR: Regular rate and rhythm without murmurs, gallops, or rubs. RESPIRATORY: Decreased breath sounds bilaterally, no wheeze, rale or rhonchi. Prolonged expiratory phase GASTROINTESTINAL: Abdomen soft, non-tender, nondistended. EXTREMITIES: No edema or joint tenderness. BACK: Nontender without deformity or crepitance. No flank tenderness. NEURO: AOx3. SKIN: No rash or erythema of visible areas Initial Vital Signs Initial Vital Signs: Vital Signs Temperature 97.9 F 12/14/19 23:55 Pulse Rate 67 12/14/19 23:55 Respiratory Rate 18 12/14/19 23:55 Blood Pressure 159/70 H 12/14/19 23:55 Pulse Oximetry 96 12/14/19 23:55 Course Orders Ordered: ED Orders 12/15/19 00:06 XR chest 1V Stat Discontinued Medications Doxycycline Hyclate (Vibramycin) 100 mg PO NOW ONE Stop: 12/15/19 00:26 Last Admin: 12/15/19 00:54 Dose: 100 mg Documented by: PAULINA Vital Signs Vital signs: Vital Signs - 8 hr 12/14/19 23:55 12/15/19 00:54 Temperature 97.9 F Pulse Rate 67 60 Respiratory Rate 18 16 Blood Pressure 159/70 H Blood Pressure [Left Arm] 121/66 Pulse Oximetry 96 95 [facility] - SOB/Dyspnea Imaging Data Chest x-ray: Attestation: I personally reviewed and interpreted this imaging study as follows: My Impression: NAP [facility] Narrative Medical decision making narrative: Daily smoker with COPD presents with productive cough. She denies fever, chills, or significant SOB. She has very reassuring physical exam and vitals. Chest x-ray shows no obvious infiltrate. Treated for atypical pneumonia given return precautions. Discharge Plan Departure Patient Disposition: Home Clinical Impression: COPD exacerbation, Atypical pneumonia Discharge Date/Time: 12/15/19 01:04 Activity Restrictions/Additional Instructions: *You have been diagnosed with [acute exacerbation of COPD and atypical pneumonia] *What to do: *Take medications as directed *Follow up with your primary care provider in 2-3 days, call for an appointment. Let them know you were seen in the Emergency Department and that we ask that you be seen in follow up *Return to ER if you should have any new, worsening or concerning symptoms Prescriptions: New benzonatate [Tessalon Perles] 100 mg capsule 100 mg PO TID PRN (Reason: cough) Qty: 14 RF: 0 doxycycline monohydrate 100 mg capsule 100 mg PO BID 10 Days Qty: 20 RF: 0 albuterol sulfate 90 mcg/actuation aerosol powdr breath activated 2 puff INHALATION Q4H PRN (Reason: shortness of breath or wheezing) Qty: 1 RF: 0 No Action hydrocodone-acetaminophen [[place]] 5-325 mg Tablet 1 tab PO PRN PRN (Reason: pain) RF: 0 atenolol 25 mg Tablet 25 mg PO BID RF: 0 prednisone 50 mg tablet 50 mg PO DAILY Qty: 5 RF: 0 doxycycline hyclate 100 mg capsule 100 mg PO BID Qty: 20 RF: 0 ipratropium-albuterol 0.5 mg-3 mg(2.5 mg base)/3 mL solution for nebulization 3 ml INHALATION Q3-4H PRN (Reason: shortness of breath or wheezing) Qty: 15 RF: 0 (DME) nebulizer and compressor Device See Rx Instructions .ROUTE .MEDSUPPLY Qty: 1 RF: 0 (DME) nebulizer accessories Kit See Rx Instructions .ROUTE .MEDSUPPLY Qty: 1 RF: 0 Referrals: [facility] [Outside]
--- NOTE | 2019-12-15 00:06 | DI.RAD.S_ITS ---
PROCEDURE: XR CHEST 1V INDICATIONS: cough TECHNIQUE: One view of the chest was acquired. COMPARISON: [facility], CR, XR CHEST 2V, 10/21/2019, 19:32. [facility], CR, XR CHEST 1V, 09/16/2018, 4:17. FINDINGS: Surgical changes and devices: None. Lungs and pleura: Lungs are clear. No pleural effusions or pneumothorax. Lungs are hyperinflated suggesting COPD. Mediastinum: Mediastinal contours appear normal. Heart size is normal. Bones and chest wall: No suspicious bony lesions. Overlying soft tissues appear unremarkable. IMPRESSION: No acute cardiopulmonary disease process. Dictated by: Diana Ayala MD, PhD on 12/15/2019 at 8:03 Approved by: Diana Ayala MD, PhD on 12/15/2019 at 8:03
[2019-12-15 00:54] VITALS: BP 121/66; PULSE 60; RESP 16; O2SAT 95
[2019-12-15] MEDS: DOXYCYCLINE HYCLATE 100 MG TABLET PO (00:54)
== END 2019-12-15 01:04 | disposition home or self-care (01) ==
PROVIDERS: Emergency Provider Emergency Medicine
DX: J44.1 Chronic obstructive pulmonary disease with (acute) exacerbation (principal); J18.9 Pneumonia, unspecified organism
CPT/HCPCS: 71045; 99283; 99284